=== PATIENT | female | born 1975 | race Caucasian/White ===

== ENCOUNTER → 2016-09-14 | Outpatient (CLI) | payer OTHER ==
[~2016-09-14] MED LIST: NO HOME MEDICATIONS
== END ==
LOC: MC.RAD 09:42
DX: Z12.31 Encounter for screening mammogram for malignant neoplasm of breast (principal)

== ENCOUNTER → 2018-04-12 | Outpatient (CLI) | payer SELFPAY | LOC: COL.RAD 10:16 | DX: K80.20 Calculus of gallbladder without cholecystitis without obstruction (principal) ==

== ENCOUNTER 2018-07-05 10:54 | Day surgery (SDC) | payer OTHER ==
--- NOTE | 2018-07-04 12:20 | NUR ---
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 PATIENT INFORMED OF WHERE TO COME/BRING LIST OF MEDS COVERED MEDICAL HX
[~2018-07-05] VITALS: Ht 149.9 cm; Wt 55.0 kg
[2018-07-05 11:42] VITALS: BP 151/74; PULSE 72; TEMP 98.3
[2018-07-05 11:50] LABS: BASO % 0.2 % (0.0-2.0); EOS # 0.1 (0.0-0.7); EOS % 1.4 % (0-4.0); GRAN # 3.7 (1.4-6.5); HEMATOCRIT 41.4 % (37.0-47.0); HEMOGLOBIN 13.7 g/dl (12.5-16.0); LYMPH # 1.8 (1.2-3.4); LYMPH % 30.7 % (20.0-51.0); MEAN CELL VOLUME 90 fl (80.0-100.0); MEAN CORPUSCULAR HEMOGLOBIN 30 pg (27.0-31.0); MEAN CORPUSCULAR HGB CONC 33 g/dl (33.0-37.0); MONO # 0.3 (0.1-0.6); MONO % 4.5 % (1.7-9.3); PLATELET COUNT 243 K/mm3 (130-400); RED BLOOD COUNT 4.62 M/mm3 (4.10-5.30); REDCELL DISTRIBUTION WIDTH-CV 14.4 % (11.5-14.5)
[2018-07-05 12:00] LABS: ALBUMIN 4.1 gm/dL (3.5-5.0); BILIRUBIN,TOTAL 0.9 mg/dL (0.0-1.0); CREATININE, serum 0.45 mg/dL (0.52-1.25); POTASSIUM 3.6 mmol/L (3.4-5.0)
--- NOTE | 2018-07-05 12:34 | NUR ---
Initial visit; Patient and her family were receptive to prayer and encouragement prior to her procedure.
[2018-07-05 15:15] VITALS: BP 116/66; PULSE 74
--- NOTE | 2018-07-05 15:15 | NUR ---
Patient arrives back from PACU drowsy. Denies pain or nausea. Patient monitor applied, vitals stable. Family at bedside.
--- NOTE | 2018-07-05 15:20 | NUR ---
Bandaid x4 across mid abdomen clean/dry/intact.
[2018-07-05 15:30] VITALS: BP 126/70; PULSE 76
--- NOTE | 2018-07-05 15:30 | NUR ---
Patient tolerated muffin and juice well. Denies pain or nausea. Vitals stable.
[2018-07-05] MEDS ORDERED: NORCO 325 MG-51 TAB PO (15:43)
[2018-07-05 15:45] VITALS: BP 132/70; PULSE 68
--- NOTE | 2018-07-05 15:50 | NUR ---
Patient report and care given to ORIANA Roldan.
--- NOTE | 2018-07-05 16:00 | NUR ---
UP AMBULATED TO BATHROOM AND VOIDED. AMBULATED BACK TO AND TOLERATED WELL. DISCONTINUED IV AND INT-CATHETER INTACT
--- NOTE | 2018-07-05 16:05 | NUR ---
PATIENT AND FAMILY RECEIVED DISCHARGE INSTRUCTIONS. DAUGHTER INTERPRETED INSTRUCTIONS PATIENT GETTING DRESSED
--- NOTE | 2018-07-05 16:20 | NUR ---
DISCHARGED PER WC BY NURSING STAFF TO PRIVATE CAR IN CARE OF DAUGHTERS AND SON.
[2018-07-05 16:55] VITALS: BP 118/84; PULSE 74; TEMP 98.5
== END 2018-07-05 16:30 | disposition home or self-care (01) ==
LOC: SDCO 10:54
PROVIDERS: Surgery
DX: K80.10 Calculus of gallbladder with chronic cholecystitis without obstruction (principal); K21.9 Gastro-esophageal reflux disease without esophagitis
CPT/HCPCS: J0690; J1100; J1885; J2405; J2704; J2710; J3010; J7120